=== PATIENT | female | born 1980 | race Caucasian/White ===

== ENCOUNTER 2025-06-24 12:42 | Emergency (ER) | payer OTHER, SELFPAY ==
--- OUTSIDE RECORDS SUMMARY | 2017-09-06 | XMS_ITS | Encounter Summary ---
Author Organization [facility] [place] [address] Care Team Providers Care Yarding And Folding Machine Operator Name Role Phone Malorie Rogers MD Primary Care Provider [phone] Encounter Details Date Type Department Care Team (Late st Contact Info) Description 09/06/[address] [facility] External Films [address] [place] [address] Pain Social History Tobacco Use Types Packs/Day Years Used Date Smoking Tobacco: Former Cigarettes Q uit: 11/05/1999 Smokeless Tobacco: Never Alcohol Use Standard Drinks/Week Comments Yes 0 (1 standard drink = 0.6 oz pur e alcohol) occasional Housing Instability Answer Date Recorde d Are you worried that in the next 2 months you may not have stable housing? No 01/10/2024 Food Access & Nutrition Answer Date Rec orded Do you have access to a vari ety of food including fruits and vegetables? Yes 01/10/2024 Access to Healthcare Answer Date Record ed Within the last 3 months, ho w many times did you visit the emergency department for your medical care? 1 01/10/2024 Health Literacy Answer Date Recorded How often do you need to hav e someone help you when you read instructions, pamphlets, or other written material from your doctor or pharmacy? Never 01/10/2024 Caregiver: How often do you need to have someone help you when you read instructions, pamphlets, or other written material from your doctor or pharmacy? Not on file 01/10/2024 Financial Risk Answer Date Recorded How hard is it for you to pa y for the very basics like food, housing, medical care, and air conditioning / heating? Not very hard 01/10/2024 Transportation Answer Date Recorded Has the lack of transportati on kept you from meetings, work, or from getting things needed for daily living? No Has the lack of transportati on kept you from medical appointments or from getting medications? No 01/10/2024 Social Isolation Answer Date Recorded How often do you feel lonely or isolated from th ose around you? Never 01/10/2024 Food Risk Answer Date Recorded Within the past 12 months we worried whether our food would run out before we got money to buy more. Never true 01/10/2024 Within the past 12 months th e food we bought just didn't last and we didn't have money to get more. Never true 01/10/2024 [place] [facility] Answer Date Re corded How often do you need to hav e someone help you when you read instructions, pamphlets, or other written material from your doctor or pharmacy? Never 01/10/2024 Caregiver: How often do you need to have someone help you when you read instructions, pamphlets, or other written material from your doctor or pharmacy? Not on file 01/10/2024 Comments Unknown Sex and Gender Information Value Date Recorded Sex Assigned at Female 05/05/2024 4:13 PM EDT Legal Sex Female 6:59 AM EST Gender Identity Female 05/05/2024 4:13 PM EDT Sexual Orientation Not on file Occupation Industry Job Start Date Job End Date [employer] Employee Not on file Not on file Not on file documented as of this encounter Plan of Treatment Upcoming Encounters Date Type Department Care Team (Late st Contact Info) Description 08/12/2025 9:45 AM EDT Office Visit [facility] Cardiology [address] [place] [address] Bruce Joe, DO [address] [place] [address] documented as of this encounter Procedures Procedure Name Priority Date/Time Associated Diagnosis Comments CT OUTSIDE IMAGES (NO INTERPRETATION) Routine 09/06/2017 8:13 AM EDT Pain documented in this encounter Results * CT outside images (no interpretation) (09/06/2017 8:13 AM EDT) Narrative CHRISTINE_MARIS - 04/23/2024 8:13 AM EDT This order has been auto-finalized and does not contain a result. us Order Transcribing User IMG CT PROCEDURES Final Result RISPACS_AF documented in this encounter Visit Diagnoses Diagnosis Pain Generalized pain documented in this encounter Care Teams Yarding And Folding Machine Operator Relationship Specialty Start Date End Date Malorie Rogers MD [address] [place] [address] Dr Deutsch [address] [place] [id number] PCP - General Family Medicine 03/03/14 documented as of this encounter
--- OUTSIDE RECORDS SUMMARY | 2025-06-10 10:15 | XMS_ITS | Encounter Summary ---
Author Organization [facility] ersity Address [address] [place] [address] Care Team Providers Care Analytics Lead Name Role Phone Malorie Rogers MD Primary Care Provider [phone] Reason for Visit * Reason Comments New Patient Right knee pain Encounter Details Date Type Department Care Team (Late st Contact Info) Description 06/10/2025 10:15 AM EDT Office Visit [facility], [facility] [address] [place] [phone] Hima Meza PA [address] [place] [address] [email or web address] Contusion of right knee, initial encounter (Primary Dx) Social History Tobacco Use Types Packs/Day Years Used Date Smoking Tobacco: Never Smokeless Tobacco: Never Alcohol Use Standard Drinks/Week Comments Yes 0 (1 standard drink = 0.6 oz pur e alcohol) Socially Comments No Sex and Gender Information Value Date Recorded Sex Assigned at Not on file Legal Sex Female 3:19 PM EST Gender Identity Not on file Sexual Orientation Not on file documented as of this encounter Progress Notes * JOSELIN Acuna - 06/10/2025 10:15 AM EDT Images from the original note were not included. New Patient, Initial Encounter Attending: Curtis Haines MD Chief Complaint Patient presents with New Patient Right knee pain SUBJECTIVE HPI: Esther is a 44 y.o. year/old female patient who presents to the office today for for evaluation of right anterior knee pain when she slipped and fell at a waterfall onto the knee. She suffered several small abrasions superficially over the anterior knee had immediate onset of some prominent swelling over the prepatellar knee although that has largely improved. She has had some residual bruising over the anterior knee. She went to [facility] where x-rays were taken and there was question as to whether or not there was an incomplete fracture of the anterior portion of the patella. She is able to extend the knee without difficulty, without lag and able to ambulate without assistance. She is feeling quite a bit better over the last couple days since the original injury. The injury occurredon 06/06/2025. She denies instability. She denies mechanical catching or locking. Patient has been seen previously by Dr. 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 She was discharged to as needed follow-up for that. PMH: Reviewed. Past Medical History: Diagnosis Date Arthritis Asthma Family History Problem Relation Age of Onset Diabetes Father Past Surgical History: Procedure Laterality Date CARPAL TUNNEL RELEASE Right 12/18/2017 KNEE SURGERY Left 1999 ORIF WRIST FRACTURE Left 11/14/2024 Abhishek Cash MD SHOULDER ARTHROSCOPY Left 03/15/2021 SHOULDER SURGERY Bilateral 97,98,99 TONSILLECTOMY Current Outpatient Medications: Asmanex (30 Metered Doses) 110 MCG/INH Inhalation Aerosol Powder Breath Activated, , Disp: , Rfl: Aspirin 81 MG Oral Tablet Delayed Release, Take 81 mg by mouth daily, Disp: , Rfl: cetirizine (ZYRTEC) 10 MG tablet, Take 10 mg by mouth daily., Disp: , Rfl: fluticasone (FLONASE) 50 MCG/ACT nasal spray, 1 spray by Nasal route daily., Disp: , Rfl: Qvar RediHaler 80 MCG/ACT Inhalation Aerosol Breath Activated, INHALE 1 PUFF BY MOUTH TWO TIMES DAILY, Disp: , Rfl: Acetaminophen 325 MG Oral Tablet, Take 650 mg by mouth every 6 (six) hours as needed for Pain, Disp: , Rfl: albuterol (PROVENTIL) (2.5 MG/3ML) 0.083% nebulizer solution, , Disp: , Rfl: Albuterol Sulfate HFA 108 (90 Base) MCG/ACT Inhalation Aerosol Solution (PROVENTIL HFA), Inhale 2 puffs into the lungs every 4 (four) hours as needed, Disp: , Rfl: Allergies Allergen Reactions Codeine Reaction: Itching Reaction: Itching Metoclopramide Other (See Comments) Abdominal pain and cramping Oxycodone Other (See Comments) Facial swelling and rash/hives ROS: Comprehensive review of systems completed by patient and reviewed by me. Pertinent positive findings discussed in HPI. Additional pertinent findings include nothing other than mentioned in the HPI/PMH. Otherwise negative. OBJECTIVE There were no vitals filed for this visit. PHYSICAL EXAMINATION: General: Pleasant, cooperative, A&Ox3, NAD. Gait: Nonantalgic, unassisted Right knee: There are several small scattered abrasions over the prepatellar knee that are superficial without sign of infection with scabs in place. There is resolving ecchymosis over the prepatellar knee and very minimal residual prepatellar soft tissue swelling. There is no joint effusion. Thereis soft tissue tenderness over the prepatellar knee, but really no particular tenderness with deep palpation of the patella. Active range of motion is 0 to 135 degrees. There is no extension lag. Theknee is stable to anteroposterior and varus/valgus stress. Patella tracks midline. Negative patellar apprehension and grind. Brittney's is negative. Calf soft supple nontender. Distal neurovascular status intact with no motor or sensory deficit. IMAGING: Imaging reviewed with patient/family. Final radiolgoy report from outside facility also reviewed asbelow. Outside radiology report questions incomplete fracture versus artifact in the patella. When compared to prior studies from 04/10/2023 and even as far back as 08/22/2016, the same vertically oriented lucency in the anterior cortex of the patella is appreciated. Lowering my suspicion for acute fracture. There are no other acute bony abnormalities. The calcified chondroid lesion in the distal femur is grossly unchanged compared to prior studies as well. ASSESSMENT: Right anterior knee contusion, improving, very low suspicion of fracture based on clinical evaluation and comparison to prior radiographs. PLAN: Options have been reviewed with Esther. She will continue with Tubigrip for light compression, ice, gentle range of motion to avoid stiffness. She will refrain from strenuous right lower extremity activity. She can utilize OTC NSAIDs for discomfort and swelling. She will avoid loaded flexion of the knee. She will contact us if symptoms are worsening. However, I would like to see her back for clinical check in about a week with a repeat x-ray just to confirm that there is no evidence of a propagating fracture line through the patella although this is felt to be low likelihood. The patient/family was instructed to call with any questions or concerns, or if symptoms worsen, and stated understanding and agreement with the plan. Return for follow-up: 7 days Imaging next visit: X-rays: 3 views right knee: AP/lateral/merchant views No orders of the defined types were placed in this encounter. CC: Malorie Rogers MD This document was dictated using BeavEx software. A reasonable attempt at proof reading has been made to minimize errors. Please call our office if you have any questions. documented in this encounter Plan of Treatment Upcoming Encounters Date Type Department Care Team (Late st Contact Info) Description 07/01/2025 8:45 AM EDT Office Visit [facility], [facility] [address] [address] Abhishek Cash MD [address] [facility] [address] [place] [address] [email or web address] documented as of this encounter Visit Diagnoses Diagnosis Contusion of right knee, initial encounter- Primary documented in this encounter Care Teams Analytics Lead Relationship Specialty Start Date End Date Malorie Rogers MD [address] [place] [address] [address] PCP - General Family Medicine 03/26/25 documented as of this encounter
--- OUTSIDE RECORDS SUMMARY | 2025-06-17 10:15 | XMS_ITS | Encounter Summary ---
Author Organization [facility] ersity Address [address] [place] [address] Care Team Providers Care Lay Out Former Name Role Phone Malorie Rogers MD Primary Care Provider [phone] Reason for Visit * Reason Comments Follow-up RT Knee fu Encounter Details Date Type Department Care Team (Late st Contact Info) Description 06/17/2025 10:15 AM EDT Office Visit [facility] Orthopedics, [facility] [address] [place] [phone] Hima Meza PA [address] [place] [address] [email or web address] Contusion of right knee, initial encounter (Primary [...] encounter Progress Notes * JOSELIN Acuna - 06/17/2025 10:15 AM EDT ESTABLISHED PATIENT, SUBSEQUENT ENCOUNTER Attending: Curtis Haines MD Chief Complaint Patient presents with Follow-up RT Knee fu SUBJECTIVE Esther Laird is a 44 y.o. female who returns to the office for follow-up for right knee contusion with outside radiographic interpretation suggesting incomplete patella fracture which was felt to benot clinically correlating to the patient's exam. We asked her to take it easy for the last week gentle range of motion RICE, NSAIDs, etc. and she has done that and has had complete resolution of herpain. She is working back to her normal activities, eager to begin rowing again. She is able to ambulate without difficulty.. There has been no interval trauma. The patient denies fevers, chills, sweats. No neurological complaints. Medical history, family history, social history, medications, allergies and review of systems are documented in the electronic record and reviewed today. OBJECTIVE Estimated body mass index is 24.33 kg/m?? as calculated from the following: Height as of 11/12/24: 1.727 m (5' 8 ). Weight as of 11/12/24: 72.6 kg (160 lb). PHYSICAL EXAMINATION: General: Pleasant, cooperative, A&O, NAD. Gait: Nonantalgic Right knee: Skin overlying the prepatellar knee shows almost completely healed scattered abrasions,with no sign of infection or deep tracking wounds. There is no prepatellar bursal fluid collection,joint effusion or any soft tissue swelling whatsoever. The entire knee including the patella is entirely nontender. Active range of motion 0 to 135 degrees without pain. Good strength. Good stability. Negative Brittney's. Negative patellar apprehension and grind. Calf soft supple nontender. Distal neurovascular status intact with no motor or sensory deficit. IMAGING: Updated x-rays of the right knee demonstrate no acute bony abnormalities. No evidence of patella fracture. ASSESSMENT Right knee contusion and abrasion, resolved PLAN Options have been reviewed with Esther. She can gradually resume activity to tolerance and we will see her back on as-needed basis. She is comfortable with the plan. The patient was instructed to call the office with any questions/concerns or if symptoms worsen. Follow-up: As needed Imaging Next Visit: As needed No orders of the defined types were placed in this encounter. CC: Malorie Rogers MD This document was dictated using Dragon Naturally Speaking Medical software. A reasonable attempt at proof reading has been made to minimize errors. Please call our office if you have any questions. documented in this encounter Plan of Treatment Upcoming Encounters Date Type Department Care Team (Late st Contact Info) Description 07/01/2025 8:45 AM EDT Office Visit [facility] Orthopedics, [facility] [address] [address] Abhishek Cash MD [address] [facility] [address] [place] [address] [email or web address] documented as of this encounter Visit Diagnoses Diagnosis Contusion of right knee, initial encounter- Primary documented in this encounter Care Teams Lay Out Former Relationship Specialty Start Date End Date Malorie Rogers MD [address] [place] [address] Dr Deutsch [address] [place] [address] PCP - General Family Medicine 03/26/25 documented as of this encounter
[2025-06-24 12:53] VITALS: BP 134/102; PULSE 100; TEMP 36.9; O2SAT 98; BMI 25.5
--- NOTE | 2025-06-24 13:05 | PC.NURSE ---
hx of DVTs. pt has been traveling via roadtrip and now has pain behind left calf. No swelling or redness.
--- OUTSIDE RECORDS SUMMARY | 2025-06-24 13:12 | XMS_ITS | Encounter Summary ---
Author Organization [facility] Address [address] [place] [address] Phone Care Team Providers Care Political Consultant Name Role Phone Malorie Rogers MD Primary Care Provider [phone] Tamica Red MD Unavailable [phone] Tawanda Almanza MD Unavailable [phone] Encounter Details Date Type Department Care Team Description 08/13/2017 Conversion [facility] Cardiology [place] [address] [place] [address] Will Perez MD [address] [facility] [address] [place] [address] Social History Tobacco Use Types Packs/Day Years Used Date Smoking Tobacco: Never Alcohol Use Standard Drinks/Week Comments No 0 (1 standard drink = 0.6 oz pur e alcohol) Sex Assigned at Date Recorded Not on file Job Start Date Occupation Industry Not on file Not on file Not on file documented as of this encounter Progress Notes * Will Perez MD - 07/14/2019 9:29 AM EDT Patient : Esther Laird : 1980 Sex : F PatientID : [id number] Phone : [phone] (Cell Phone) E-Mail : [email or web address] Address : [address] [place] [address] Document Date : Aug 13 2017 12:00 AM Document Summary : Referral Requests Referral Requests Imported By: Paige Andrade 08/13/2017 4:10:12 PM External Attachment: Type: Image Comment: External Document documented in this encounter Plan of Treatment Not on file documented as of this encounter Visit Diagnoses Not on filedocumented in this encounter Care Teams Political Consultant Relationship Specialty Start Date End Date Malorie Rogers MD PCP - General Family Medicine 03/03/14 Tamica Red MD [address] [facility] [address] [place] [address] Referring Physician Gynecology 05/07/19 Tawanda Almanza MD [address] [facility] [address] [place] [address] Consulting Physician Orthopedic Surgery 01/10/21 documented as of this encounter
--- OUTSIDE RECORDS SUMMARY | 2025-06-24 13:12 | XMS_ITS | Continuity of Care Document ---
Author Organization [facility], [facility] Address [address] [place] [address] Phone [phone] Problems Active Problems Provider Date Otogenic otalgia Onset: 12/13/19 17 Social History Type Date Description Comments Sex Female Sex Unknown Allergies and adverse reactions Active Allergies Criticality Reaction Severity Comments Date Codeine Sulfate Unable to assess criticality itching Mod erate 05/04/2018 Medications Active Medications SIG Qnty Indications Ordering Provider Date Azelastine HCL (Nasal)0.1% Solution 1 spray(s) in each nostril bid Unknown 12/13/2016 Fluticasone [id number]/Act Suspension 2 sprays in each nostril daily Unknown 12/13/2016 Vital Signs Date Vital Result Comment 12/13/2016 11:30am Height 68 inches Height in cm's 172.7 cm Weight 158.00 lb Weight 71.668 kg BMI (Body Mass Index) 24.0 kg/m2 BP Systolic 102 mmHg BP Diastolic 62 mmHg Medical Devices Description No Information Available Encounters Description No Information Available Assessments Description No Information Available Plan of Treatment No Information Available Functional Status Description No Information Available Mental Status Description No Information Available Referrals Description No Information Available
--- OUTSIDE RECORDS SUMMARY | 2025-06-24 13:12 | XMS_ITS | Encounter Summary ---
Author Organization [facility] Address [address] [place] [address] Phone Care Team Providers Care Product Grader Name Role Phone Malorie Rogers MD Primary Care Provider [phone] Tamica Red MD Unavailable [phone] Tawanda Almanza MD Unavailable [phone] Encounter Details Date Type Department Care Team Description 10/24/2022 Orders Only [facility] Primary Care - [address] [place] [address] Malorie Rogers MD [address] [place] [address] [phone] Memory loss; Difficulty with speech Social History Tobacco Use Types Packs/Day Years Used Date Smoking Tobacco: Former Cigarettes Q uit: 2004 Smokeless Tobacco: Never Alcohol Use Standard Drinks/Week Comments Yes 0 (1 standard drink = 0.6 oz pur e alcohol) occasional Sex Assigned at Date Recorded Not on file Job Start Date Occupation Industry Not on file Not on file Not on file COVID-19 Exposure Response Date Recorded In the last 10 days, have yo u been in contact with someone who was confirmed or suspected to have Coronavirus/COVID-19? No / Unsure 10/16/2022 8:10 AM EST documented as of this encounter Plan of Treatment Not on file documented as of this encounter Procedures Procedure Name Priority Date/Time Associated Diagnosis Comments B. BURGDORFERI ANTIBODIES (LYME) Routine 10/24/2022 8:48 AM EST Memory loss Difficulty with speech TREPONEMA PALLIDUM (SYPHILIS) ANTIBODY Routine 10/24/2022 8:48 AM EST Memory loss Difficulty with speech TSH Routine 10/24/2022 8:48 AM EST Memory loss Difficulty with speech FOLATE Routine 10/24/2022 8:48 AM EST Memory loss Difficulty with speech VITAMIN B12 Routine 10/24/2022 8:48 AM EST Memory loss Difficulty with speech BASIC METABOLIC PANEL Routine 10/24/2022 8:48 AM EST Memory loss Difficulty with speech documented in this encounter Results * TSH (10/24/2022 8:48 AM EST) TSH, High Sensitivity 3.183 0.550 - 4.780 mIU/L LAB [facility] Blood 10/24/2022 8:48 AM EST 10/24/2022 12:04 PM EST Malorie Rogers MD LAB BLOOD ORDERABLES [facility] * Vitamin B12 (10/24/2022 8:48 AM EST) Vitamin B-12 807 211 - 911 pg/mL LAB [facility] Blood 10/24/2022 8:48 AM EST 10/24/2022 12:04 PM EST Malorie Rogers MD LAB BLOOD ORDERABLES [facility] * Folate (10/24/2022 8:48 AM EST) Folate >24.0 5.5 - 58850.9 ng/mL LAB [facility] Blood 10/24/2022 8:48 AM EST 10/24/2022 12:04 PM EST Malorie Rogers MD LAB BLOOD ORDERABLES [facility] * Lyme disease IgM/IgG Antibodies (10/24/2022 8:48 AM EST) Pathologist [facility] [place] LYME IGM/IGG AB @ NEGATIVE NEGATIVE LAB [facility] Comment: A Negative serologic test for Lyme Disease indicates no serologic evidence of infection with B burgdorferi at the time this specimen was collected. A repeat specimen should be collected in 2 to 4 weeks if clinically indicated. In-house assay revised on 12/27/2020 and now includes antibodies against outer surface protein (OspC) in addition to VlsE. Blood 10/24/2022 8:48 AM EST 10/24/2022 12:04 PM EST Malorie Rogers MD LAB BLOOD ORDERABLES Performing Organization Address [facility]/ZIP Co de Phone Number LAB [facility] * (ABNORMAL) Basic metabolic panel (10/24/2022 8:48 AM EST) Sodium 138 136 - 145 mmol/L [facility] Potassium 3.8 3.5 - 5.1 mmol/L [facility] Chloride 103 98 - 107 mmol/L [facility] CO2 28 20 - 31 mmol/L [facility] Anion Gap 7 7 - 16 mmol/L [facility] Urea nitrogen 7(L) 9 - 23 mg/dL [facility] Creatinine 0.62 0.55 - 1.02 mg/dL [facility] BUN/Creatinine Ratio 11.3 10.0 - 20.0 RATIO [facility] GLUCOSE 90 70 - 99 mg/dL [facility] Calcium 9.0 8.3 - 10.6 mg/dL [facility] GFR MDRD Non Af Amer >60 >59 ml/min/1. 73m2 [facility] GFR MDRD Af Amer >60 >59 ml/min/1. 73m2 [facility] Glom Filt Rate, Est SEE NOTES [facility] Comment: NORMAL KIDNEY FUNCTION OR MILD DISEASE - GFR >OR= 60 CHRONIC KIDNEY DISEASE - GFR 15 - 59 RENAL FAILURE - GFR <15 Est. GFR calculation based on the MDRD study equation, which assumes a steady state for creatinine. Est. GFR should not be used for medication dosing. Blood 10/24/2022 8:48 AM EST 10/24/2022 12:04 PM EST Malorie Rogers MD LAB BLOOD ORDERABLES Performing Organization Address [facility]/ZIP Co de Phone Number [facility] * Treponema pallidum (syphilis) antibody (10/24/2022 8:48 AM EST) Syphilis Treponemal Ab NEGATIVE NEGATIVE LAB [facility] Blood 10/24/2022 8:48 AM EST 10/24/2022 12:04 PM EST Malorie Rogers MD LAB BLOOD ORDERABLES Performing Organization Address [facility] Co de Phone Number LAB [facility] documented in this encounter Visit Diagnoses Diagnosis Memory loss Difficulty with speech documented in this encounter Care Teams Product Grader Relationship Specialty Start Date End Date Malorie Rogers MD PCP - General Family Medicine 03/03/14 Tamica Red MD [address] [place] [address] [place] [address] Referring Physician Gynecology 05/07/19 Tawanda Almanza MD [address] [facility] [address] [place] [address] Consulting Physician Orthopedic Surgery 01/10/21 documented as of this encounter
--- OUTSIDE RECORDS SUMMARY | 2025-06-24 13:12 | XMS_ITS | Encounter Summary ---
Author Organization [facility] Address [address] [place] [address] Phone Care Team Providers Care Access Specialist Name Role Phone Malorie Rogers MD Primary Care Provider [phone] Tamica Red MD Unavailable [phone] Tawanda Almanza MD Unavailable [phone] Encounter Details Date Type Department Care Team Description 08/15/2017 Conversion [facility] Cardiology [place] [address] [place] [address] Will Perez MD [address] [facility] [address] [place], [place] [id number] Social History Tobacco Use Types Packs/Day Years [...] on filedocumented in this encounter Care Teams Access Specialist Relationship Specialty Start Date End Date Malorie Rogers MD PCP - General Family Medicine 03/03/14 Tamica Red MD [address] [place] [address] [address] [place] [address] Referring Physician Gynecology 05/07/19 Tawanda Almanza MD [address] [facility] [address] [place], [place] [id number] Consulting Physician Orthopedic Surgery 01/10/21 documented as of this encounter
--- OUTSIDE RECORDS SUMMARY | 2025-06-24 13:12 | XMS_ITS | Encounter Summary ---
Author Organization [facility] Address [address] [place] [address] Phone Care Team Providers Care Pediatric Registered Nurse Name Role Phone Malorie Rogers MD Primary Care Provider [phone] Tamica Red MD Unavailable [phone] Tawanda Almanza MD Unavailable [phone] Encounter Details Date Type Department Care Team Description 08/15/2017 Conversion [facility] Cardiology [place] [address] [place] [address] Will Perez MD [address] [facility] [address] [place], [place] [phone] Social History Tobacco Use Types Packs/Day Years [...] on filedocumented in this encounter Care Teams Pediatric Registered Nurse Relationship Specialty Start Date End Date Malorie Rogers MD PCP - General Family Medicine 03/03/14 Tamica Red MD [address] [place] [address] [address] [place] [address] Referring Physician Gynecology 05/07/19 Tawanda Almanza MD [address] [facility] [address] [place], [place] [id number] Consulting Physician Orthopedic Surgery 01/10/21 documented as of this encounter
--- OUTSIDE RECORDS SUMMARY | 2025-06-24 13:12 | XMS_ITS ---
Continuity of Care Document (CCD) Created on: June 24, 2025 Esther Laird External Reference #: [id number] : 1980 Sex: Female Author Organization [facility] Address [address] [place] [address] Phone [phone] Care Team Providers Care Plastics Scientist Name Role Phone Tawanda Montes MD Care Team Information Wire Spiral Binder Unavailable Malorie Camacho M.D. Primary Care Physician Un available Problems Active Problems Provider Date Acute conjunctivitis Tawanda Montes M.D. Onset: 0 04/25/2012 Family History Date Family Member(s) Observation Comments Paternal Grandfather Cataracts Allergies and adverse reactions Active Allergies Criticality Reaction Severity Comments Date Adhesives Unable to assess criticality rash 04/25/2012 Hydrocodone Unable to assess criticality itch 04/25/2012 Medications Active Medications SIG Qnty Indications Ordering Provider Date BCP Unknown Xyzal Unknown [place] Unknown Veramist Unknown Albuterol Sulfate ER Unknown Flovent HFA Unknown 00 Allergy Shots Unknown History Medications Zylet0.5-0.3% Suspension 1 gtts OD qid 5ml 372.00 Tawanda Montes M.D. 04/25/2012 - 04/29/2012
--- OUTSIDE RECORDS SUMMARY | 2025-06-24 13:12 | XMS_ITS | Continuity of Care Document ---
Author Organization [facility] Address [address], [address] [place] [address] Phone [phone] Problems Active Problems Provider Date No current problems or disability Onset: Social History Description No Information Available Medical Devices Description No Information Available Encounters Description No Information Available Assessments Description No Information Available Plan of Treatment No Information Available Functional Status Description No Information Available Mental Status Description No Information Available Referrals Description No Information Available
--- OUTSIDE RECORDS SUMMARY | 2025-06-24 13:12 | XMS_ITS | Clinical Summary ---
Author Organization [facility] ers[facility] Address [address] [place] [address] Care Team Providers Care National Park Tour Guide Name Role Phone Malorie Rogers MD Primary Care Provider [phone] Allergies Active Allergy Reactions Criticality Noted Date Comments Codeine 01/12/2009 Reaction: Itching Reaction: Itching Metoclopramide Other (See Comments) 05/04/2017 Abdominal pain and cramping Oxycodone Other (See Comments) 11/27/2024 Facial swelling and rash/hives Medications cetirizine (ZYRTEC) 10 MG tablet Take 10 mg by mouth daily. Active fluticasone (FLONASE) 50 MCG/ACT nasal spray 1 spray by Nasal route daily. Active albuterol (PROVENTIL) (2.5 MG/3ML) 0.083% nebulizer solution 09/12/2017 Active Aspirin 81 MG Oral Tablet Delayed Release Take 81 mg by mouth daily Active Asmanex (30 Metered Doses) 110 MCG/INH Inhalation Aerosol Powder Breath Activated 01/17/2021 Ac tive Acetaminophen 325 MG Oral Tablet Take 650 mg by mouth every 6 (six) hours as needed for Pain Active Albuterol Sulfate HFA 108 (90 Base) MCG/ACT Inhalation Aerosol Solution (PROVENTIL HFA) Inhale 2 puffs into the lungs every 4 (four) hours as needed 03/14/2025 Active Qvar RediHaler 80 MCG/ACT Inhalation Aerosol Breath Activated INHALE 1 PUFF BY MOUTH TWO TIMES DAILY 05/20/2025 Active Active Problems Problem Noted Date Diagnosed Date Right hand paresthesia 01/24/2018 Dysfunction of right eustachian tube 09/13/2016 Overview (01/03/2018): Last Assessment & Plan: Her right ear looks okay today, but despite her antihistamine and steroid nasal spray, she still has swelling in the right nostril. I suspect eustachian tube dysfunction is causing her right ear symptoms. Will try Sudafed today and tomorrow prior to flying. Then will get her into ENT when she is back from her trip next week. Vertigo 09/13/2016 Overview (01/03/2018): Last Assessment & Plan: Improving with time and the meclizine is helping her symptoms. No changes today. She will call if anything new develops. Right knee pain 04/06/2016 Pharyngitis 11/08/2009 Overview (01/03/2018): Overview: Converted from [facility] Vaginal discharge 10/23/2008 Overview (01/03/2018): Overview: Converted from [facility] Disorder of respiratory system 02/20/2008 Overview (01/03/2018): Overview: Additional Info: rad Converted From [facility] Encounters Date Type Department Care Team Description 06/17/2025 10:15 AM EDT Office Visit [facility], [address] [address] Hima Meza PA Contusion of right knee, initial encounter (Primary Dx) 06/10/2025 10:15 AM EDT Office Visit [facility], [address] [address] Hima Meza PA Contusion of right knee, initial encounter (Primary Dx) 03/26/2025 10:30 AM EDT Office Visit [facility], [address] [address] Abhishek Cash MD Other closed intra-articular fracture of distal end of left radius, initial encounter (Primary Dx); S/P ORIF (open reduction internal fixation) fracture from Last 3 Months Family History Medical History Relation Comments Diabetes Father Relation Status Comments Father Alive Mother Alive Social History Tobacco Use Types Packs/Day Years Used Date Smoking Tobacco: Never Smokeless Tobacco: Never Tobacco Cessation:Counseling Given: Not Answered Alcohol Use Standard Drinks/Week Comments Yes 0 (1 standard drink = 0.6 oz pur e alcohol) Socially Comments No Sex and Gender Information Value Date Recorded Sex Assigned at Not on file Legal Sex Female 3:19 PM EST Gender Identity Not on file Sexual Orientation Not on file Last Filed Vital Signs Vital Sign Reading Time Taken Comments Blood Pressure 135/81 03/29/2022 12:30 AM EDT Pulse 69 03/29/2022 12:30 AM EDT Temperature 36.7 C (98.1 F) 03/29/2022 12:30 AM EDT Respiratory Rate 16 03/29/2022 12:30 AM EDT Oxygen Saturation 98% 03/29/2022 12:30 AM EDT Inhaled Oxygen Concentration - - Weight 72.6 kg (160 lb) 11/12/2024 8:51 AM EST Height 172.7 cm (5' 8 ) 11/12/2024 8:51 AM EST Body Mass Index 24.33 11/12/2024 8:51 AM EST Plan of Treatment Upcoming Encounters Date Type Department Care Team (Late st Contact Info) Description 07/01/2025 8:45 AM EDT Office Visit [facility], [facility] [address] [place] [phone] Abhishek Cash MD [address] [place] [phone] [email or web address] Health Maintenance Due Date Last Done Comments HIV Screening 1992 Varicella Vaccines (1 of 2 - 13+ 2-dose series) 1992 Hepatitis C Screening 1997 Cervical Cancer Screening 3 years 2000 Breast Cancer Screening [address] Colonography 2024 Colonoscopy 2024 Colorectal Cancer Screening 2024 Stool DNA (Cologuard) 2024 Stool FIT 2024 Influenza Vaccine 07/06/2025 07/09/2024, , 07/18/2022, Additional history exists DTaP,Tdap,and Td Vaccines (12 - Td or Tdap) 06/06/2035 06/06/2025, 03/12/2020, 10/03/2010, Additional history exists IPV Vaccines Completed 06/30/1985, 05/1981, 04/13/1980, Additional history exists MMR Vaccines Completed 07/06/1992, 03/10/1981 Hepatitis B Vaccines Completed 08/09/1999, 06/22/1999, 12/22/1997, Additional history exists Meningococcal Vaccine Aged Out 08/16/2006 No nicole anastasiya eligible based on patient's age to complete this topic Pneumococcal Vaccine: Pediatrics (0 to 5 Years) and At-Risk Patients (6 to 49 Years) Aged Out 08/04/2022, 05/05/2022 No longer eligibl e based on patient's age to complete this topic COVID-19 Vaccine Completed 07/09/2024, , 07/18/2022, Additional history exists HIB Vaccines Aged Out No longer eligi ble based on patient's age to complete this topic HPV Vaccines Aged Out No longer eligi ble based on patient's age to complete this topic Hepatitis A Vaccines Aged Out No long er eligible based on patient's age to complete this topic Meningococcal B Vaccine Aged Out No l onger eligible based on patient's age to complete this topic RSV Immunization under 20 months Aged Out No longer eligible based on patient's age to complete this topic Procedures Procedure Name Priority Date/Time Associated Diagnosis Comments XR KNEE 4 OR MORE VIEWS 78924 Routine 06/17/2025 10:19 AM EDT Contusion of right knee, initial encounter XR WRIST 3 OR MORE VIEWS 21219 Routine 03/26/2025 10:50 AM EDT Other closed intra-articular fracture of distal end of left radius, initial encounter S/P ORIF (open reduction internal fixation) fracture from Last 3 Months Results * XR Knee 4 or More Views Right (06/17/2025 10:19 AM EDT) Anatomical Region Laterality Modality Knee Computed Radiogr aphy 06/17/2025 12:3 4 PM EDT Impressions 06/17/2025 12:34 PM EDT IMPRESSION: 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 Narrative 06/17/2025 12:34 PM EDT CLINICAL HISTORY: Right knee pain Views: 4 views right knee INDICATION: Check right knee pain FINDINGS: The patient has no acute bony trauma of the bones about the knee. Mild to moderate tricompartmental degenerative changes of the knee are noted. No evidence of knee effusion. Overlying soft tissues appear normal. Procedure Note Baldo Loera MD - 06/17/2025 CLINICAL HISTORY: Right knee pain Views: 4 views right knee INDICATION: Check right knee pain FINDINGS: The patient has no acute bony trauma of the bones about theknee. Mild to moderate tricompartmental degenerative changes of the kneeare noted. No evidence of knee effusion. Overlying soft tissues appearnormal. IMPRESSION: Mild to moderate tricompartmental degenerative changes of theright knee. Hima OLIVERA IMG DIAGNOSTIC IMAGING ORDERA BLES Final Result * XR Wrist 3 or More Views Left (03/26/2025 10:50 AM EDT) Anatomical Region Laterality Modality Wrist Computed Radiogr aphy 03/29/2025 11:2 6 AM EDT Impressions 03/29/2025 11:27 AM EDT IMPRESSION: Status post ORIF left distal radius fracture with moderate bone healing. Narrative 03/29/2025 11:27 AM EDT CLINICAL HISTORY: Left wrist fracture Views: 4 views left wrist INDICATION: Check left wrist fracture FINDINGS: The patient is once again noted to have undergone open reduction internal fixation of the left distal radius fracture with a volar locking plate and screws. Hardware appears to be of appropriate length and in good position. Moderate bone healing is noted. Ulnar styloid tip nonunion is appreciated. Proximal and distal carpal rows have normal osseous anatomy and alignment. CMC joints and metacarpal bases appear normal. Procedure Note Baldo Loera MD - 03/29/2025 CLINICAL HISTORY: Left wrist fracture Views: 4 views left wrist INDICATION: Check left wrist fracture FINDINGS: The patient is once again noted to have undergone open reductioninternal fixation of the left distal radius fracture with a volar lockingplate and screws. Hardware appears to be of appropriate length and in goodposition. Moderate bone healing is noted. Ulnar styloid tip nonunion isappreciated. Proximal and distal carpal rows have normal osseous anatomyand alignment. CMC joints and metacarpal bases appear normal. IMPRESSION: Status post ORIF left distal radius fracture with moderatebone healing. us Abhishek Cash MD IMG DIAGNOSTIC IMAGING ORDER JAIDEN Final Result from Last 3 Months Care Teams National Park Tour Guide Relationship Specialty Start Date End Date Malorie Rogers MD [address] [place] [address] Dr Deutsch [address] [place] [address] PCP - General Family Medicine 03/26/25
--- OUTSIDE RECORDS SUMMARY | 2025-06-24 13:12 | XMS_ITS | Encounter Summary ---
Author Organization [facility] Address [address] [place] [address] Phone Care Team Providers Care Third Rail Installer Name Role Phone Malorie Rogers MD Primary Care Provider [phone] Tamica Red MD Unavailable [phone] Tawanda Almanza MD Unavailable [phone] Encounter Details Date Type Department Care Team Description 09/06/[address] [facility] Cardiology [place] [address] [place] [address] Will Perez MD [address] [facility] [address] [place] [address] Social History Tobacco Use Types Packs/Day Years Used Date Smoking Tobacco: Never Alcohol Use Standard Drinks/Week Comments No 0 (1 standard drink = 0.6 oz pur e alcohol) Sex Assigned at Date Recorded Not on file Job Start Date Occupation Industry Not on file Not on file Not on file documented as of this encounter Progress Notes * Will Perez MD - 07/14/2019 9:35 AM EDT Patient : Esther Laird : 1980 Sex : F PatientID : [id number] Phone : [phone] (Cell Phone) E-Mail : [email or web address] Address : [address] [place] [address] Document Date : Sep 06 2017 12:00 AM Document Summary : TYSHAWN CONSULT TYSHAWN CONSULT Imported By: Lenka Guerrero 09/07/2017 2:05:09 PM External Attachment: Type: Image Comment: External Document documented in this encounter Plan of Treatment Not on file documented as of this encounter Visit Diagnoses Not on filedocumented in this encounter Care Teams Third Rail Installer Relationship Specialty Start Date End Date Malorie Rogers MD PCP - General Family Medicine 03/03/14 Tamica Red MD [address] [facility] [address] [place] [address] Referring Physician Gynecology 05/07/19 Tawanda Almanza MD [address] [facility] [address] [place] [address] Consulting Physician Orthopedic Surgery 01/10/21 documented as of this encounter
--- OUTSIDE RECORDS SUMMARY | 2025-06-24 13:12 | XMS_ITS | Clinical Summary ---
Author Organization [facility] Address [address] [place] [address] Phone Care Team Providers Care Project Internship Name Role Phone Malorie Rogers MD Primary Care Provider [phone] Allergies Active Allergy Reactions Criticality Noted Date Comments Codeine Itching Medium 01/12/2009 Reaction: Itching Reaction: Itching Reaction: Itching Hydrocodone 02/13/2022 Other Reaction(s): Skin Itching. itch Metoclopramide Other 05/04/2017 Other Reaction(s): Other (See Comments) Abdominal pain and cramping Medications cetirizine (ZyrTEC) 10 mg tablet Take 1 tablet (10 mg total) by mouth. Active albuterol 2.5 mg /3 mL (0.083 %) nebulizer solution 7 Active EPINEPHrine (EPIPEN) 0.3 mg/0.3 mL injection Use once if needed for allergic reaction 1 each 3 4 Active Qvar RediHaler 80 mcg/actuation HFA aerosol breath activated inhaler Inhale 1 puff by mouth 2 (two) times a day. 4 Active albuterol HFA (PROAIR HFA ; PROVENTIL HFA ; VENTOLIN HFA) 90 mcg/actuation inhaler Inhale 2 puffs by mouth every 6 (six) hours if needed for wheezing or shortness of breath. 6.7 g 3 4 Active Active Problems Problem Noted Date Diagnosed Date Thrombophlebitis of superfic ial veins of right lower extremity 04/08/2024 Palpitations 04/08/2024 Asthma 01/17/2024 Constipation 01/17/2024 Hiatal hernia 01/17/2024 Seasonal allergies 01/17/2024 Abnormal thyroid blood test 01/17/2024 Assessment & Plan (01/17/2024 1:22 PM EDT): Will repeat TSH and T4 to evaluate her thyroid. Chest wall pain 01/17/2024 Assessment & Plan (01/17/2024 1:24 PM EDT): Patient's EKG without any significant changes from prior. Episode does not seem to be cardiac in nature. Patient was told by emergency department that she should have evaluation by automobile rental representative. Will make referral for evaluation in the future. Did discuss that should symptoms recur or new symptoms develop she should contact the office or go to emergency department for evaluation. Vertigo 09/13/2016 Overview (01/17/2024): Last Assessment & Plan: Improving with time and the meclizine is helping her symptoms. No changes today. She will call if anything new develops. Last Assessment & Plan: Improving with time and the meclizine is helping her symptoms. No changes today. She will call if anything new develops. Mild persistent asthma without complication 02/03 Overview (01/17/2024): Additional Info: rad Converted From [employer] [place] Immunizations Name Administration Dates Next Due Pfizer SARS-CoV-2 COVID-19, mRNA, LNP-S, preservative free 08/06/2021,01/10/2021,12/20/2020 Surgical History Surgery Date Site/Laterality Comments KNEE ARTHROSCOPY W/ ACL RECONSTRUCTION Left PROCEDURE: KNEE ARTHROSCOPY W/ ACL RECONSTRUCTION TONSILLECTOMY PROCEDURE: TONSILLECTOMY CARPAL TUNNEL RELEASE PROCEDURE: CARPAL TUNNEL RELEASE OTHER SURGICAL HISTORY PROCEDURE: CAPSULAR RELEASE SHOULDER Medical History Medical History Date Comments Seasonal allergies DX: Seasonal allergies Asthma DX: Asthma Clotting disorder ([facility] V24) DX: Clotting disorder Superficial thrombophlebitis DX: DVT (deep venous thrombosis) Family History Medical History Relation Name Comments Diabetes Father Heart attack Father Hypertension Father Melanoma Maternal Grandfather Lung cancer Maternal Grandmother Mitral valve prolapse Mother Other:Family h/o Cancer -lung Other 1 Other:Family h/o COPD Other 2 Lung cancer Paternal Grandfather Emphysema Paternal Grandmother Relation Name Status Comments Father Alive Maternal Grandfather Maternal Grandmother Mother Alive Other 1 Other 2 Paternal Grandfather Paternal Grandmother Social History Tobacco Use Types Packs/Day Years Used Date Smoking Tobacco: Former Cigarettes Q uit: 11/05/1999 Smokeless Tobacco: Never Tobacco Cessation:Counseling Given: Not [...] money to get more. Never true 01/10/2024 [facility] Answer Date Re corded How [...] file Not on file Not on file Obstetrics History Last Filed Vital Signs Vital Sign Reading Time Taken Comments Blood Pressure 112/80 09/24/2024 3:41 PM EST Pulse 78 09/24/2024 3:41 PM EST Temperature 36.7 C (98 F) 05/06/2024 12:07 PM EDT Respiratory Rate 16 05/06/2024 12:07 PM EDT Oxygen Saturation 94% 09/24/2024 3:41 PM EST Inhaled Oxygen Concentration - - Weight 75.8 kg (167 lb) 09/24/2024 3:41 PM EST Height 175.3 cm (5' 9 ) 09/24/2024 3:41 PM EST Body Mass Index 24.66 09/24/2024 3:41 PM EST Plan of Treatment Upcoming Encounters Date Type Department Care Team (Late st Contact Info) Description 08/12/2025 9:45 AM EDT Office Visit [facility] Physicians Cardiology [address] [place] [address] Bruce Joe, DO [address] [place] [address] Health Maintenance Due Date Last Done Comments Breast Cancer Screening 1979 Cervical Cancer Screening: Pap Smear 2000 Colorectal Cancer Screening: Colonoscopy 10/08/2022 Social Influencers of Health Screening 10/08/2022 Depression Screening 11/05/2024 01/10/2024 Influenza Vaccine (#1) 2025 , 08/08/2023, 07/18/2022, Additional history exists Cholesterol Screening (Lipid Panel) 09/24/2029 09/24/2024 DTaP,Tdap,and Td Vaccines (11 - Td or Tdap) 03/12/2030 03/12/2020, 10/03/2010, 08/28/2001, Additional history exists IPV Vaccines Completed 06/30/1985, 05/1981, 04/13/1980, Additional history exists MMR Vaccines Completed 07/06/1992, 03/10/1981 Hepatitis B Vaccines Completed 08/09/1999, 06/22/1999, 12/22/1997, Additional history exists Meningococcal ACWY Vaccine Aged Out 08/16/2006 N o longer eligible based on patient's age to complete this topic Pneumococcal Vaccine: Pediatrics (0 to 5 Years) and At-Risk Patients (6 to 49 Years) Completed 08/04/2022, 05/05/2022 COVID-19 Vaccine Completed 07/09/2024, , 07/18/2022, Additional history exists HIV Screening Completed 09/24/2024 Hepatitis C Screening Completed 09/24/2024 HIB Vaccines Aged Out No longer eligi [...] age to complete this topic RSV Immunization Patients Under 20 months Aged Out No longer eligible based on patient's age to complete this topic Varicella Vaccines Aged Out No longer eligible based on patient's age to complete this topic Procedures Procedure Name Priority Date/Time Associated Diagnosis Comments HEPATITIS C ANTIBODY WITH REFLEX TO MOLECULAR STUDY Routine 09/24/2024 4:35 PM EST Encounter for hepatitis C screening test for low risk patient HIV 1, 2 ANTIBODY, P24 ANTIGEN WITH REFLEX TO DIFFERENTIATION Routine 09/24/2024 4:35 PM EST Encounter for screening for HIV LIPID PANEL WITH REFLEX TO DIRECT LDL Routine 09/24/2024 4:35 PM EST Screening for cardiovascular condition from Last 3 Months or Most Recently Relevant to Health Maintenance Results * Hepatitis C antibody with reflex to molecular study (09/24/2024 4:35 PM EST) Pathologist [facility] Hepatitis C Antibody Negative Negative LAB CHEMISTRY METHOD 09/25/2024 2:39 PM EST [facility] Blood Venous blood specimen / Unknown Venipuncture / Unknown 09/24/2024 4:35 PM EST 09/24/2024 5:05 PM EST us Malorie Rogers MD LAB BLOOD ORDERABLES Final R esult Performing Organization Address City/[facility]/ZIP Co de Phone Number [facility] [address] [place] [address], [place] [phone] * HIV 1,2 antibody, p24 antigen with reflex to differentiation (09/24/2024 4:35 PM EST) [facility] HIV Combo AB/AG Nonreactive Nonreactive LAB CHEMISTRY METHOD 09/25/2024 2:30 PM EST [facility] Blood Venous blood specimen / Unknown Venipuncture / Unknown 09/24/2024 4:35 PM EST 09/24/2024 5:04 PM EST us Malorie Rogers MD LAB BLOOD ORDERABLES Final R esult [facility] [address] [place] [address], [place] [phone] * (ABNORMAL) Lipid panel with reflex to direct LDL (09/24/2024 4:35 PM EST) Cholesterol 229(H) 100 - 199 mg/dL 09/25/2024 10:38 AM [facility] Comment: Desirable: <200 mg/dl Borderline: 200-240 mg/dl High: >240 mg/dl HDL 70(H) 40 - 69 mg/dL 09/25/2024 10:38 AM [facility] Comment: Desirable: >60 mg/dl Borderline: 40 - 60 mg/dl Undesirable: <40 mg/dl Triglycerides 76 25 - 160 mg/dL 09/25/2024 10:38 AM [facility] LDL Calculated 144(H) 0 - 130 mg/dL 09/25/2024 10:38 AM [facility] Comment: Values listed are Risk Dependent: Optimal: <100 mg/dL Near Optimal: 100-129 mg/dL Borderline: 130-159 mg/dL High: 160-189 mg/dL Very High: >190 mg/dL VLDL Cholesterol Chavo 15.2 6 - 40 mg/dL 09/25/2024 10:38 AM [facility] Chol/HDL Ratio 3.3 09/25/2024 10:38 AM [facility] Blood Venous blood specimen / Unknown Venipuncture / Unknown 09/24/2024 4:35 PM EST 09/24/2024 5:05 PM EST Malorie Rogers MD LAB BLOOD ORDERABLES Final R esult [facility] [address] [place] [address], from Last 3 Months or Most Recently Relevant to Health Maintenance [place] [address] Care Teams Project Internship Relationship Specialty Start Date End Date Malorie Rogers MD [address] [place] [address] Dr [address] [place] [address] PCP - General Family Medicine 03/03/14
--- OUTSIDE RECORDS SUMMARY | 2025-06-24 13:12 | XMS_ITS | Encounter Summary ---
Author Organization [facility] Address [address] [place] [address] Phone Care Team Providers Care Mountain Services Manager Name Role Phone Malorie Rogers MD Primary Care Provider [phone] Tamica Red MD Unavailable [phone] Tawanda Almanza MD Unavailable [phone] Encounter Details Date Type Department Care Team Description 08/15/2017 Conversion [facility] Cardiology [place] [address] [place] [address] Will Perez MD [address] [facility] [address] [place], [place] [id number] Social History Tobacco Use Types Packs/Day Years [...] on filedocumented in this encounter Care Teams Mountain Services Manager Relationship Specialty Start Date End Date Malorie Rogers MD PCP - General Family Medicine 03/03/14 Tamica Red MD [address] [place] [address] [address] [place] [address] Referring Physician Gynecology 05/07/19 Tawanda Almanza MD [address] [facility] [address] [place], [place] [id number] Consulting Physician Orthopedic Surgery 01/10/21 documented as of this encounter
--- OUTSIDE RECORDS SUMMARY | 2025-06-24 13:12 | XMS_ITS | Clinical Summary ---
Author Organization [facility] Address [address] [place] [address] Phone Care Team Providers Care Consulting Sme Name Role Phone Malorie Rogers MD Primary Care Provider [phone] Tamica Red MD Unavailable [phone] Tawanda Almanza MD Unavailable [phone] Allergies Active Allergy Reactions Severity Noted Date Comments Codeine 01/12/2009 Reaction: Itching Hydrocodone 02/13/2022 itch Other 02/13/2022 rash Metoclopramide Other (See Comments) 05/04/2017 Abdominal pain and cramping Medications * Be aware that medications may not be up to date as of this document. ALWAYS verify current medications with the patient. Medication Sig Dispensed Refills Start Date End Date Status cetirizine (ZYRTEC) 10 MG tablet Take 10 mg by mouth daily 0 Active fluticasone (FLONASE) 50 MCG/ACT nasal spray 1 spray into each nostril daily 0 Active albuterol (PROVENTIL) (2.5 MG/3ML) 0.083% nebulizer solution Take 3 mL (2.5 mg total) by nebulization 4 (four) times a day 75 mL 5 09/12/2017 Active omeprazole (PRILOSEC) 40 MG capsule Take 1 capsule (40 mg total) by mouth daily 30 capsule 1 09/17/2017 Active albuterol (VENTOLIN HFA) 108 (90 Base) MCG/ACT inhaler Inhale 2 puffs every 4 (four) hours as needed for wheezing 1 Inhaler 1 03/25/2019 Active aspirin 81 MG chewable tablet Chew 81 mg daily 0 Act omar Asmanex, 30 Metered Doses, 110 MCG/INH AEPB USE 1 INHALATION ORALLY TWICE DAILY 1 Inhaler 1 06/10/2021 Active Probiotic Product (PROBIOTIC-10 PO) Take by mouth 0 Acti ve [place]-3 1000 MG CAPS Take by mouth 0 Active VITAMIN D PO Take by mouth 0 Active Active Problems Problem Noted Date Vertigo 09/13/2016 Last Assessment & Plan: Improving with time and the meclizine is helping her symptoms. No changes today. She will call if anything new develops. Dysfunction of right eustachian tube 07/2016 Last Assessment & Plan: Her right ear looks okay today, but despite her antihistamine and steroid nasal spray, she still has swelling in the right nostril. I suspect eustachian tube dysfunction is causing her right ear symptoms. Will try Sudafed today and tomorrow prior to flying. Then will get her into ENT when she is back from her trip next week. Pharyngitis 11/08/2009 Overview: Converted from Nextgen Mild persistent asthma without complicat ion 02/20/2008 Overview: Additional Info: rad Converted From Next[facility] Resolved Problems Problem Noted Date Resolved Date Vaginal Discharge 10/23/2008 08/19/2019 Overview: Converted from Next[facility] Immunizations Name Administration Dates Next Due Covid-19 (Pfizer 12+) Bivalent 07/18/2022 Covid-19 (Pfizer) Ready to U se ([place] Cap) 07/18/2022 DTP 08/28/2001, 3,06/30/1985,06/11,06/25/1980,04/13/1980,02/07/1980 Flu Vaccine =>3 Quad Pres-Fr ee (Afluria 0.5 ml) 08/14/2018 Hepatitis B Peds 08/09/1999, 9,12/22/1997,07/20,06/15/1997 Influenza 10/18/2012, 0,10/15/2009,09/02 Influenza (Flucelvax) > 6 Mon 07/18/2022 Influenza (Unspecified) 07/18/2022,07/15,07/17/2019,09/08 Influenza Trivalent (Flucelv ax) 0.5mL (6 mon &>) 07/17/2019 MMR 07/06/1992,03/10/1981 Meningococcal Conjugate 08/16/2006 OPV 06/30/1985, 1,04/13/1980,02/06 Pneumococcal PCV20 (Prevnar 20) 08/04/2022 Rubella 05/16/1995 Td (Tenivac) 04/05/2001 Tdap Vaccine > 7 Yrs 03/12/2020,10/03/2010 Family History Medical History Relation Name Comments Diabetes Father Hypertension Father Melanoma Maternal Grandfather Lung cancer Maternal Grandmother Mitral valve prolapse Mother Lung cancer Paternal Grandfather Emphysema Paternal Grandmother Other Unknown 1 Family h/o Canc er -lung Other Unknown 2 Family h/o COPD Relation Name Status Comments Father Alive Maternal Grandfather Maternal Grandmother Mother Alive Paternal Grandfather Paternal Grandmother Unknown 1 Unknown 2 Social History Tobacco Use Types Packs/Day Years Used Date Smoking Tobacco: Former Cigarettes Q uit: 2004 Smokeless Tobacco: Never Alcohol Use Standard Drinks/Week Comments Yes 0 (1 standard drink = 0.6 oz pur e alcohol) occasional Sex Assigned at Date Recorded Not on file Job Start Date Occupation Industry Not on file Not on file Not on file Last Filed Vital Signs Vital Sign Reading Time Taken Comments Blood Pressure 113/75 08/04/2022 9:13 AM EDT Pulse 77 08/04/2022 9:13 AM EDT Temperature 36.7 C (98.1 F) 08/04/2022 9:13 AM EDT Respiratory Rate 16 03/12/2020 5:31 PM EDT Oxygen Saturation 98% 08/04/2022 9:13 AM EDT Inhaled Oxygen Concentration - - Weight 76.2 kg (168 lb) 08/04/2022 9:13 AM EDT Height 175.3 cm (5' 9 ) 08/04/2022 9:13 AM EDT Body Mass Index 24.81 08/04/2022 9:13 AM EDT Plan of Treatment Health Maintenance Due Date Last Done Comments Colon Cancer Screening Colonoscopy 1979 Colon Cancer Screening Fecal DNA 1979 Colon Cancer Screening Fecal Occult Blood Test 1979 Colorectal Cancer Screening 1979 Sigmoidoscopy Every 5 Years 1979 Mammogram 05/23/2021 05/23/2019, 05/17/2018 PAP SMEAR 05/17/2023 05/17/2018 COVID-19 Vaccine ( season) 2024 07/18/2022, 07/18/2022, 08/06/2021, Additional history exists PHQ Depression Screening 11/05/2024 022, 07/11/2019, 09/13/2018, Additional history exists Influenza Vaccine 06/05/2025 07/18/2022, , 07/06/2022, Additional history exists DTaP / TDap / Td (4 - Td or Tdap) 03/12/2030 03/12/2020, 10/03/2010, 04/05/2001 RSV Adult > 60+ Yrs (1 - 1-dose 60+ series) 2039 HIV Testing Offered (13-64 y/o) Completed 12/03/2017 (Declined) Mammogram Historical Discontinued 05/23/2019, 05/17/20 18 Pneumococcal Vaccine Completed 08/04/2022 RSV Ped < 20 months Aged Out No longe r eligible based on patient's age to complete this topic Care Teams Consulting Sme Relationship Specialty Start Date End Date Malorie Rogers MD PCP - General Family Medicine 03/03/14 Tamica Red MD [address] [address] Referring Physician Gynecology 05/07/19 Tawanda Almanza MD [address] [place] [address] Consulting Physician Orthopedic Surgery 01/10/21
--- OUTSIDE RECORDS SUMMARY | 2025-06-24 13:12 | XMS_ITS | Encounter Summary ---
Author Organization [facility] Address [address] [place] [address] Phone Care Team Providers Care Funeral Pre Arrangement Counselor Name Role Phone Malorie Rogers MD Primary Care Provider [phone] Tamica Red MD Unavailable [phone] Tawanda Almanza MD Unavailable [phone] Reason for Visit * Reason Onset Date Comments self referral 04/21/2019 Encounter Details Date Type Department Care Team Description 04/21/2019 Telephone [facility] Surgical Services - [address] [place] [address] Paulina Rogel NP self referral Social History Tobacco Use Types Packs/Day Years Used Date Smoking Tobacco: Never Smokeless Tobacco: Never Alcohol Use Standard Drinks/Week Comments No 0 (1 standard drink = 0.6 oz pur e alcohol) Sex Assigned at Date Recorded Not on file Job Start Date Occupation Industry Not on file Not on file Not on file documented as of this encounter Miscellaneous Notes * Telephone Encounter - Liliana Gary MA - 04/21/2019 11:07 AM EDT FYI- This patient is a [address] Shafer. She called and wanted to come back in due to some breast/axillary pain x 1 month. She hasn't had any breast imaging since [address] [facility]. Pt is going to call them to fax me her mammogram report. In the meantime she is on your schedule 05/07/2018. documented in this encounter Plan of Treatment Not on file documented as of this encounter Visit Diagnoses Not on filedocumented in this encounter Care Teams Funeral Pre Arrangement Counselor Relationship Specialty Start Date End Date Malorie Rogers MD PCP - General Family Medicine 03/03/14 Tamica Red MD [address] [place] [address] Referring Physician Gynecology 05/07/19 Tawanda Almanza MD [address] [place] [address] Consulting Physician Orthopedic Surgery 01/10/21 documented as of this encounter
--- OUTSIDE RECORDS SUMMARY | 2025-06-24 13:12 | XMS_ITS | Clinical Summary ---
Author Organization [facility] Address [address] [place] [address] Phone Care Team Providers Care Trade Clerk Name Role Phone Unavailable Primary Care Provider Unavailabl e Social History Tobacco Use Types Packs/Day Years Used Date Smoking Tobacco: Never Assessed Comments Unknown Sex and Gender Information Value Date Recorded Sex Assigned at Not on file Legal Sex Female 9:05 AM EST Gender Identity Not on file Sexual Orientation Not on file Plan of Treatment Not on file
--- OUTSIDE RECORDS SUMMARY | 2025-06-24 13:12 | XMS_ITS | Encounter Summary ---
Author Organization [facility] Address [address] [place] [address] Phone Care Team Providers Care Jumpbasting Canvas Baster Name Role Phone Malorie Rogers MD Primary Care Provider [phone] Tamica Red MD Unavailable [phone] Tawanda Almanza MD Unavailable [phone] Encounter Details Date Type Department Care Team Description 08/15/2017 Conversion [facility] Cardiology [place] [address] [place] [address] Will Perez MD [address] [facility] [address] [place] [address] Social History Tobacco Use Types Packs/Day Years [...] Procedure Name Priority Date/Time Associated Diagnosis Comments [facility] Routine 08/15/2017 3 :24 PM EDT documented in this encounter Results * [facility] (08/15/2017 3:24 PM EDT) EKG INTERP normal sinus rhythm with a rate of 84 beats per minute, R wave delayed progression, no prior ECG for comparison, [facility] 08/15/2017 3:24 PM EDT Will Perez MD LAB BLOOD ORDERABLES [facility] documented in this encounter Visit Diagnoses Not on filedocumented in this encounter Care Teams Jumpbasting Canvas Baster Relationship Specialty Start Date End Date Malorie Rogers MD PCP - General Family Medicine 03/03/14 Tamica Red MD [address] [place] [address] [place] [address] Referring Physician Gynecology 05/07/19 Tawanda Almanza MD [address] [place] [address] [address] [place] [address] Consulting Physician Orthopedic Surgery 01/10/21 documented as of this encounter
--- NOTE | 2025-06-24 13:21 | ED_ITS ---
HPI HPI - Extremity Injury (Lower) General Chief Complaint: Extremity Injury, Lower Stated Complaint: LOWER EXTREMITY SWELLING Time Seen by Provider: 06/24/25 12:59 Source: patient Mode of arrival: walk-in History of Present Illness HPI Narrative: Patient is coming to the ER with a left leg mostly pain in the posterior aspect of the thigh that she feels that is going down her leg, patient is coming to us from [place] driving to [place] she apparently has been driving for the last 3 hours, she is worried that she could be having a DVT as she had a history of DVT almost 8 years ago at that time it was after delivering her baby No other concerns no chest pain no other complaints Related Data Allergies Allergy/AdvReac Type Severity Reaction Status Date / Time codeine Allergy Swelling Verified 06/24/25 12:52 of Lip/Tongue/Throat metoclopramide (From Reglan) Allergy cramping Verified 06/24/25 12:52 Opioid HPI Opioid Management Most Recent Pain and Opioid Data: Last Pain Scale 7 Today, 12:53 Review of Systems ROS Status of ROS 10 or more systems reviewed and unremark able except as noted in history and below PFSH PFSH Social History Little interest or pleasure in doing things: not at all Feeling down, depressed, or hopeless: not at all Exam Narrative Exam Narrative: Nurses notes and vital signs reviewed and patient is not hypoxic. General: Well-appearing and in no apparent distress. Skin: Warm, dry, no pallor noted. No rash. Head: Normocephalic, atraumatic. Musculoskeletal: normal ROM, no calf or popliteal tenderness, there is mild tenderness upon palpation of the posterior aspect of the lower thigh and no vascular injury detected Constitutional Vital Signs, click to edit/add: Last Vital Signs Temp 98.4 F 06/24/25 12:53 Pulse 100 H 06/24/25 12:53 Resp 16 06/24/25 12:53 BP 134/102 H 06/24/25 12:53 Pulse Ox 98 06/24/25 12:53 O2 Del Method Room Air 06/24/25 12:53 Course Vital Signs Vital signs: Vital Signs Temperature 98.4 F 06/24/25 12:53 Pulse Rate 100 H 06/24/25 12:53 Respiratory Rate 16 06/24/25 12:53 Blood Pressure 134/102 H 06/24/25 12:53 Pulse Oximetry 98 06/24/25 12:53 Oxygen Delivery Method Room Air 06/24/25 12:53 Temperature 98.4 F 06/24/25 12:53 Pulse Rate 100 H 06/24/25 12:53 Respiratory Rate 16 06/24/25 12:53 Blood Pressure 134/102 H 06/24/25 12:53 Pulse Oximetry 98 06/24/25 12:53 Oxygen Delivery Method Room Air 06/24/25 12:53 MDM - Extremity Injury (Lower) MDM Narrative Medical decision making narrative: The patient duplex of the left lower extremity showed no acute pathology Right note the patient symptoms could be muscular and she is to follow-up with her primary care when she gets to [place] and in case of any continued symptoms she might have the duplex repeated The patient is to follow up with primary care physician in next 2-3 days or to return to the emergency department should any of the signs or symptoms worsen or new symptoms develop. The patient agrees with the following Diagnosis and Treatment plan and the patient will be discharged home. Discharge Plan Discharge Chief Complaint: Extremity Injury, Lower Clinical Impression: Muscle pain, History of pulmonary embolism Patient Disposition: Home, Self-Care Time of Disposition Decision: 16:39 Condition: Good Print Language: Hebrew Instructions: Musculoskeletal Pain (ED) Referrals: Physician,Non-Staff, [Primary Care Provider] - 1 week Discharge Date/Time: 06/24/25 16:48
[2025-06-24 14:45] VITALS: BP 120/91; PULSE 91; O2SAT 98
== END 2025-06-24 16:48 | disposition home or self-care (01) ==
PROVIDERS: Emergency Provider Emergency Medicine
DX: M79.18 Myalgia, other site (principal); Z86.718 Personal history of other venous thrombosis and embolism
CPT/HCPCS: 93971; 99284